=== PATIENT | female | born 1965 | race Caucasian/White ===

== ENCOUNTER 2017-06-22 09:25 | Outpatient (CLI) | payer BC ==
[2017-06-22 10:04] LABS: #Basophils 0.1 thou/uL (0.0-0.2); #Eosinphils 0.2 thou/uL (0.0-0.7); #Lymphocytes 1.4 thou/uL (1.20-3.40); #Monocytes 0.3 thou/uL (0.11-0.59); #Neutrophils 1.9 thou/uL (1.40-6.50); %Basophils 1.9 % (0.0-1.0); %Eosinophils 4.7 % (0.0-10.0); %Lymphocytes 36.2 % (21.0-51.0); %Monocytes 7.3 % (0.0-10.0); %Neutrophils 49.8 % (42.0-75.0); Hemoglobin 13.5 g/dL (12.0-16.0); Mean Corpuscular HGB CONC 35.5 g/dL (32.0-36.0); Mean Corpuscular Hemoglobin 32.2 pg (27.0-31.0); Mean Corpuscular Volume 90.6 fl (81.0-99.0); Mean Platelet Volume 6.2 fL (7.4-10.4); Platelet Count 236 thou/uL (130-400); RBC Distribution Width 12.1 % (11.5-14.5); Red Blood Cell (RBC) Count 4.21 mill/uL (4.20-5.40); White Blood Cell (WBC) Count 3.7 thou/uL (4.8-10.8)
[2017-06-22 10:15] LABS: ALT (SGPT) 23 U/L (8-55); AST (SGOT) 17 U/L (5-34); Albumin 4.5 g/dL (3.5-5.0); Alkaline Phosphatase 51 U/L (40-150); Anion Gap 15 mmol/L (10-20); BUN (Urea Nitrogen) 8 mg/dL (9.8-20.1); Bilirubin, Total 0.3 mg/dL (0.2-1.2); Calc. Creatinine Clearance 0 mL/min (70-130); Calcium 9.4 mg/dL (7.8-10.44); Carbon Dioxide 22 mmol/L (22-29); Cardiac Risk 2.2 (Less than 4.5); Chloride 107 mmol/L (98-107); Cholesterol 240 mg/dl (< 200 Desired); Estimated GFR-MDRD 83; Globulin 2.8 g/dL (2.4-3.5); Glucose 85 mg/dL (70-105); HDL Cholesterol 109 mg/dL (>60 Neg Risk); LDL Cholesterol, Calculated 112 mg/dL; Potassium 4.3 mmol/L (3.5-5.1); Protein, Total 7.3 g/dL (6.0-8.3); Sodium 140 mmol/L (136-145); Triglycerides 94 mg/dL (Less than 150)
== END 2017-06-22 09:26 | disposition home or self-care (01) ==
LOC: HPCALD 09:25
PROVIDERS: ATTEND Family Medicine
DX: Z13.6 Encounter for screening for cardiovascular disorders (principal); E53.8 Deficiency of other specified B group vitamins; I10 Essential (primary) hypertension
CPT/HCPCS: 36415; 80053; 80061; 82607; 85025

== ENCOUNTER 2018-06-04 18:33 | Emergency (ER) | payer BC ==
[2018-06-04] MEDS ORDERED: Midazolam HCl 2 mg/2 ml Vial ONE (18:52)
[2018-06-04] MEDS ORDERED: Fentanyl 100 MCG/2 ML VIAL ONE (18:52)
[2018-06-04 19:04] LABS: Clarity Clear (Clear); Specific Gravity, Urine 1.015 (1.005-1.030); pH, Urine 7.5 (5.0-9.0)
[2018-06-04 19:05] LABS: Bilirubin Negative (Negative); Blood, Urine Trace (Negative); Glucose, Urine (Dipstick) Negative (Negative); Leukocyte Negative (Negative); Nitrite Negative (Negative); Protein, Urine (Dipstick) 100 mg/dL (Neg-Trace); Urobilinogen 0.2 mg/dL (0.2-1.0)
[2018-06-04 19:07] LABS: Bacteria/HPF 1+ HPF (None Seen); RBC/HPF 0-3 HPF (0-3); Squamous Epithelial 0-3 HPF (0-3); WBC/HPF 0-3 HPF (0-3)
[2018-06-04 19:11] LABS: Hemoglobin 11.9 g/dL (12.0-16.0); Mean Corpuscular HGB CONC 38.9 g/dL (32.0-36.0); Mean Corpuscular Hemoglobin 30.2 pg (27.0-31.0); Mean Corpuscular Volume 77.6 fL (78.0-98.0); Mean Platelet Volume 6.1 fL (7.4-10.4); Platelet Count 266 thou/uL (130-400); Red Blood Cell (RBC) Count 3.92 mill/uL (4.20-5.40); White Blood Cell (WBC) Count 11.3 thou/uL (4.8-10.8)
[2018-06-04 19:13] LABS: ALT (SGPT) 27 U/L (8-55); AST (SGOT) 43 U/L (5-34); Albumin 4.4 g/dL (3.5-5.0); Alkaline Phosphatase 43 U/L (40-150); Anion Gap 21 mmol/L (10-20); BUN (Urea Nitrogen) 6 mg/dL (9.8-20.1); Calc. Creatinine Clearance 0 mL/min (70-130); Calcium 8.9 mg/dL (7.8-10.44); Carbon Dioxide 22 mmol/L (22-29); Chloride 75 mmol/L (98-107); Estimated GFR-MDRD 83; Globulin 2.9 g/dL (2.4-3.5); Glucose 146 mg/dL (70-105); Potassium 3.2 mmol/L (3.5-5.1); Protein, Total 7.3 g/dL (6.0-8.3)
[2018-06-04 19:14] LABS: Troponin I 0.022 ng/mL (< 0.028)
[2018-06-04 19:16] LABS: CKMB 24.4 ng/mL (0-6.6)
[2018-06-04 19:17] LABS: Sodium 115 mmol/L (136-145)
[2018-06-04 19:22] LABS: #Basophils 0.1 thou/uL (0.0-0.2); #Lymphocytes 0.8 thou/uL (1.20-3.40); #Monocytes 0.9 thou/uL (0.11-0.59); #Neutrophils 9.5 thou/uL (1.40-6.50); %Basophils 0.7 % (0.0-1.0); %Lymphocytes 6.9 % (21.0-51.0); %Monocytes 7.9 % (0.0-10.0); %Neutrophils 84.5 % (42.0-75.0)
[2018-06-04 19:23] LABS: MDiff Complete? YES
--- NOTE | 2018-06-04 19:51 | CT ---
CT OF THE BRAIN WITHOUT CONTRAST 06/04/18 There is a small subdural hematoma in the left frontotemporal region. It is about 4 mm wide and 3.5 c m long. Shift of the frontal horns from left to right is present by only 1 to 2 mm, so it is pretty m inimal. This is apparently a contrecoup injury as an obvious scalp hematoma is seen in the right janey eto-occipital region. The ventricles are normal in size. no parenchymal bleeding was seen. Calvarium appears intact with no skull fracture evident. There is a small air fluid level in the left maxillary sinus, but I see no fractures involving the maxillary sinuses, zygomatic arches, or nasal bones, all of which were included in this scan. IMPRESSION: 1. Small left frontotemporal subdural hematoma, a contrecoup injury to the scalp hematoma seen o n the right posteriorly. 2. Very minor shift of the ventricles from left to right. 3. A small air fluid level, left maxillary sinus. Findings discussed with Dr. Nieto at 1907 on 06/04/18. POS: HOME
--- NOTE | 2018-06-04 21:28 | RAD ---
PORTABLE CHEST: 06/04/18 AP portable film at 1854 is compared with a 04/15/15 study. The patient has been intubated with the tip of the endotracheal tube just slightly above the bifurcat ion. The mediastinum seems slightly widened. This may be in part due to the patient being turned slig htly. Depending upon the clinical symptoms, this may need further investigation. The lungs are otherw ise clear with no gross effusions. No gross fractures are identified. The heart size is normal. IMPRESSION: 1. Endotracheal tube a few centimeters above the cindy, so appears appropriately placed. 2. Mediastinum seems slightly wide, though it could be an artifact of positioning. Further follo wup advised. POS: HOME
== END 2018-06-04 20:00 | disposition short-term general hospital (02) ==
LOC: BURERS 18:33
DX: S06.5X9A Traumatic subdural hemorrhage with loss of consciousness of unspecified duration, initial encounter (principal); I10 Essential (primary) hypertension; W18.30XA Fall on same level, unspecified, initial encounter
CPT/HCPCS: 31500; 36415; 51702; 70450; 71045; 80053; 81003; 81015; 82553; 83605; 84484; 85025; 87040; 87086; 93005; 96365; 96375; J2250; J3010